=== PATIENT | male | born 1940 | race Caucasian/White ===

== ENCOUNTER 2016-12-06 07:13 | Day surgery (SDC) | payer MEDICARE, OTHER ==
[~2016-12-06 07:13] MED LIST: Cefuroxime 10 MG/ML SYRINGE EYERT SCH; Lidocaine 1% PF 2 ML SDV INJECT SCH; Pilocarpine 4% Ophth Soln 15 ML Bot EYERT SCH
[2016-12-06] MEDS: Polymyxin B/Trimethoprim 10 ML Bottle EYERT SCH ×3 (07:30→09:25)
[2016-12-06] MEDS: Brimonidine 0.2% Ophth Soln 5 ML Bottle EYERT SCH ×3 (07:35→09:25)
[2016-12-06] MEDS: Phenylephrine 2.5% Ophth Soln 2 ML Bot EYERT SCH ×5 (07:39→09:02)
--- NOTE | 2016-12-06 07:54 | PCM.PREANE ---
Preanesthetic Assessment - Anesthesia/Transfusion/Family Hx Anesthesia History: Prior Anesthesia Without Reaction Family History of Anesthesia Reaction: No Transfusion History: No Prior Transfusion(s) Intubation History: Unknown - Review of Systems General: No Symptoms Pulmonary: No Symptoms (quit smoking 30 yrs ago.) Cardiovascular: No Symptoms (HTN) Gastrointestinal: No Symptoms (GERD) Neurological: No Symptoms Other: Reports: Diabetes (0630 blood sugar 105), Depression - Physical Assessment NPO Status Date: 12/05/16 NPO Status Time: 22:00 Pulse: 65 O2 Sat by Pulse Oximetry: 93 Respiratory Rate: 16 Blood Pressure: 129/66 Temperature: 36.7 C Height: 1.75 m Weight: 97.522 kg ASA Class: 2 Mental Status: Alert & Oriented x3 Airway Class: Mallampati = 2 Dentition: Reports: Normal Dentition, Missing Tooth/Teeth, Caries Thyro-Mental Finger Breadths: 3 Mouth Opening Finger Breadths: 3 Lungs: Clear to Auscultation, Normal Respiratory Effort Cardiovascular: Regular Rate, Regular Rhythm, No Murmurs - Allergies Allergies/Adverse Reactions: Allergies Allergy/AdvReac Type Severity Reaction Status Date / Time No Known Allergies Allergy Verified 12/01/16 11:14 - Anesthesia Plan Pre-Op Medication Ordered: None - Acknowledgements Anesthesia Type Planned: MAC Pt an Appropriate Candidate for the Planned Anesthesia: Yes Alternatives and Risks of Anesthesia Discussed w Pt/Guardian: Yes Pt/Guardian Understands and Agrees with Anesthesia Plan: Yes PreAnesthesia Questionnaire - HOME MEDS Home Medications: Home Meds Aspirin 81 mg PO DAILY 12/01/16 [History] Fenofibrate 160 mg PO DAILY 12/01/16 [History] Glimepiride [Amaryl] 4 mg PO DAILY 12/01/16 [History] Insulin Glargine,Hum.Rec.Anlog [Touangelao Solostar] 300 units SUBCUT ASDIRECTED [History] Insulin Lispro [Humalog Kwikpen U-100] 100 units SUBCUT ASDIRECTED 12/01/16 [ History] Omeprazole Magnesium [Prilosec] 2.5 mg PO DAILY 12/01/16 [History] PARoxetine [Paxil] 20 mg PO DAILY 12/01/16 [History] Valsartan/Hydrochlorothiazide [Valsartan-Hctz 160-12.5 mg Tab] 1 tab PO DAILY [History] atorvaSTATin Calcium [Atorvastatin Calcium] 80 mg PO DAILY 12/01/16 [History] - CURRENT (IN HOUSE) MEDS Current Meds: Current Medications Brimonidine Tartrate (Alphagan 0.2% Ophth Soln) 0 ml EYERT ASDIRECTED KAIT Stop: 12/06/16 16:00 Last Admin: 12/06/16 07:35 Dose: 1 drop Cefuroxime Sodium (Zinacef) 0 mg EYERT ASDIRECTED KAIT Stop: 12/06/16 16:00 Lidocaine HCl (Xylocaine-Mpf 1%) 10 ml INJECT ASDIRECTED KAIT Stop: 12/06/16 16:00 Phenylephrine HCl (Jeffy-Synephrine 2.5% Ophth Soln) 0 ml EYERT ASDIRECTED KAIT Stop: 12/06/16 16:00 Last Admin: 12/06/16 07:39 Dose: 1 drop Pilocarpine HCl (Pilocar 4% Ophth Soln) 0 ml EYERT ASDIRECTED KAIT Stop: 12/06/16 16:00 Polymyxin/Trimethoprim Sulfate (Polytrim Ophth Soln) 0 ml EYERT ASDIRECTED KAIT Stop: 12/06/16 16:00 Last Admin: 12/06/16 07:30 Dose: 1 drop Tetracaine HCl (Tetracaine 0.5% Steri-Unit Daisy) 0 ml EYERT ASDIRECTED KAIT Stop: 12/06/16 16:00 Tropicamide (Mydriacyl 1% Ophth Soln) 0 ml EYERT ASDIRECTED KAIT Stop: 12/06/16 16:00 Last Admin: 12/06/16 07:44 Dose: 1 drop
[2016-12-06] MEDS: Tetracaine HCl/PF 0.5% 4 ML Bottle EYERT SCH ×2 (08:51→09:15)
--- NOTE | 2016-12-06 09:29 | PCM48HPAN ---
Post Anesthesia Note - EVALUATION WITHIN 48HRS OF ANESTHETIC Vital Signs in Normal Range: Yes Patient Participated in Evaluation: Yes Respiratory Function Stable: Yes Airway Patent: Yes Cardiovascular Function Stable: Yes Hydration Status Stable: Yes Pain Control Satisfactory: Yes Nausea and Vomiting Control Satisfactory: Yes Mental Status Recovered: Yes
[2016-12-06 09:38] VITALS: BP 145/67
== END 2016-12-06 09:37 | disposition home or self-care (01) ==
LOC: JD.SDS 07:13
PROVIDERS: ATTEND Ophthalmology
DX: H26.9 Unspecified cataract (principal); I10 Essential (primary) hypertension; E78.00 Pure hypercholesterolemia, unspecified; E11.9 Type 2 diabetes mellitus without complications; K21.9 Gastro-esophageal reflux disease without esophagitis; Z79.82 Long term (current) use of aspirin; Z79.4 Long term (current) use of insulin; Z79.899 Other long term (current) drug therapy; Z87.891 Personal history of nicotine dependence
CPT/HCPCS: 66984; A9270; C1780; J0697

== ENCOUNTER 2018-12-06 11:48 | Emergency (ER) | payer MEDICARE, OTHER ==
[2018-12-06] MEDS ORDERED: Sodium Chloride 0.9% 10 ML Syringe FLUSH PRN (12:18)
--- NOTE | 2018-12-06 13:32 | CT ---
Head CT Technique: Multiple axial sections through the brain were obtained. Intravenous contrast was not utilized. Comparison: No previous intracranial imaging is available. Findings: Ventricles along with basal cisterns and sulci over the convexities are moderately prominent. Very minimal diminished density noted within portions of the periventricular white matter compatible with small vessel ischemic demyelination change. Several lacunar infarcts are felt to be present within the basal ganglia. No other abnormal parenchymal densities are seen. No evidence of intracranial hemorrhage. No midline shift or mass effect is seen. Bone window settings were reviewed which show a rounded soft tissue finding within the inferior right maxillary sinus measuring 1.5 cm compatible with retention cyst. Slight mucosal thickening seen within the left maxillary sinus. Mastoid sinuses are clear. No acute calvarial abnormality is appreciated. Air is noted within a small left globe presumably due to rupture of the eyeball. No orbital wall fracture is appreciated on this exam. Impression: 1. Senescent change as noted above. Minimal sinus findings which are believed to be chronic. 2. Small left globe containing air most likely representing rupturing of the eyeball. 3. No other acute abnormality is appreciated. Diagnostic code #5
--- NOTE | 2018-12-06 13:32 | CT ---
CT facial bones Technique: Multiple axial sections through the facial bones were obtained. Intravenous contrast was not utilized. Reconstructed coronal and sagittal images were reviewed. Findings: Retention cyst is noted within the inferior right maxillary sinus. Minimal areas of mucosal thickening are seen within both maxillary sinuses. No air-fluid levels are seen within the paranasal sinuses. No facial bone fracture is identified. Small left globe is seen with air also seen within the globe. This finding is felt compatible with rupturing of the eyeball. Right globe appears unremarkable. Impression: 1. Small left globe with air compatible with ruptured eyeball. 2. Sinus findings which are believed to be chronic and incidental. 3. No acute facial bone fracture is seen. Diagnostic code #5
[2018-12-06] MEDS ORDERED: HYDROmorphone 0.5 MG/0.5 ML Syringe IVPUSH ONE (13:49)
--- NOTE | 2018-12-06 13:53 | EDM.PDOC ---
ED HPI GENERAL MEDICAL PROBLEM - General Chief Complaint: Head Injury Stated Complaint: EYE INJURY Time Seen by Provider: 12/06/18 12:17 Source of Information: Reports: Patient, Family History Limitations: Reports: No Limitations - History of Present Illness INITIAL COMMENTS - FREE TEXT/NARRATIVE: The patient presents with a left eye injury. The patient was in his yard and tripped and fell and his his head. He may have had LOC. He has an injury to his left eye with bleeding. He cannot see anything out of that eye. He can maybe see some light. He is on aspirin. He has no headache or neck pain. He has no chest pain or shortness of breath. He has no abdominal pain, nausea or vomiting. He has no pain in his hips or arms. Onset: Sudden Duration: Minutes: Location: Reports: Other (Left eye) Quality: Reports: Sharp Severity: Moderate Improves with: Reports: None Worsens with: Reports: None Associated Symptoms: Reports: No Other Symptoms Headache Pain Score (Numeric/FACES): 5 - Related Data Allergies Allergy/AdvReac Type Severity Reaction Status Date / Time No Known Allergies Allergy Verified 12/06/18 12:24 Home Meds: Home Meds Aspirin 81 mg PO DAILY 12/01/16 [History] Fenofibrate 160 mg PO DAILY 12/01/16 [History] Glimepiride [Amaryl] 4 mg PO DAILY 12/01/16 [History] Insulin Glargine,Hum.Rec.Anlog [Cheikh Jackson] 300 units SUBCUT ASDIRECTED [History] Insulin Lispro [Humalog Kwikpen U-100] 100 units SUBCUT ASDIRECTED 12/01/16 [ History] Omeprazole Magnesium [Prilosec] 2.5 mg PO DAILY 12/01/16 [History] PARoxetine [Paxil] 20 mg PO DAILY 12/01/16 [History] Valsartan/Hydrochlorothiazide [Valsartan-Hctz 160-12.5 mg Tab] 1 tab PO DAILY [History] atorvaSTATin Calcium [Atorvastatin Calcium] 80 mg PO DAILY 12/01/16 [History] Past Medical History Cardiovascular History: Reports: Hypertension Respiratory History: Reports: Sleep Apnea Gastrointestinal History: Reports: GERD Endocrine/Metabolic History: Reports: Diabetes, Type II Social & Family History - Tobacco Use Smoking Status *Q: Former Smoker Used Tobacco, but Quit: Yes Month/Year Tobacco Last Used: 30 yrs ago ED ROS GENERAL - Review of Systems Review Of Systems: See Below Constitutional: Reports: No Symptoms HEENT: Reports: Other (Left eye vision loss and laceration to his left eye) Respiratory: Reports: No Symptoms Cardiovascular: Reports: No Symptoms Endocrine: Reports: No Symptoms GI/Abdominal: Reports: No Symptoms : Reports: No Symptoms Musculoskeletal: Reports: No Symptoms Skin: Reports: No Symptoms Neurological: Reports: No Symptoms ED EXAM, HEAD INJURY - Physical Exam Exam: See Below Exam Limited By: No Limitations General Appearance: Alert, No Apparent Distress Head: Other (Lacration to the left eye) Eyes: Left Eye: Other (Laceration to the eye with bleeding. The laceration is just medial to the cornea and through the sclera.) Ears: Normal External Exam Nose: Normal Inspection Throat/Mouth: Normal Inspection Neck: Non-Tender, Normal Alignment, Normal Inspection Respiratory: No Respiratory Distress, Lungs Clear, Normal Breath Sounds Cardiovascular: Regular Rate, Rhythm, No Edema, No Murmur GI/Abdominal Exam: Soft, Non-Tender, No Organomegaly, No Mass Back Exam: Normal Inspection Extremities: Normal Inspection Course - Vital Signs Last Recorded V/S: Last Vital Signs Temp 97.8 F 12/06/18 12:22 Pulse 75 12/06/18 12:22 Resp 16 12/06/18 12:22 BP 139/75 12/06/18 12:22 Pulse Ox 90 L 12/06/18 12:22 - Orders/Labs/Meds Orders: Active Orders 24 hr Category Date Time Status Cardiac Monitoring [RC] . DIRECTED Care 12/06/18 12:18 Active Peripheral IV Care [RC] . DIRECTED Care 12/06/18 12:18 Active Sodium Chloride 0.9% [Saline Flush] Med 12/06/18 12:18 Active 10 ml FLUSH ASDIRECTED PRN Peripheral IV Insertion Adult [OM.PC] Stat Oth 12/06/18 12:18 Ordered Medication Orders Sodium Chloride (Saline Flush) 10 ml FLUSH ASDIRECTED PRN PRN Reason: Keep Vein Open Labs: Laboratory Tests 12/06/18 12/06/18 12/06/18 Range/Units 12:20 12:20 12:20 WBC 6.56 (4.23-9.07) K/mm3 RBC 4.46 L (4.63-6.08) M/mm3 Hgb 13.1 L D (13.7-17.5) gm/L Hct 41.1 (40.1-51.0) % MCV 92.2 (79.0-92.2) fl MCH 29.4 (25.7-32.2) pg MCHC 31.9 L (32.2-35.5) g/dl RDW Std Deviation 46.8 H (35.1-43.9) fL Plt Count 193 (163-337) K/mm3 MPV 10.2 (9.4-12.3) fl Neut % (Auto) 71.8 H (34.0-67.9) % Lymph % (Auto) 13.0 L (21.8-53.1) % [place] % (Auto) 11.3 (5.3-12.2) % Eos % (Auto) 3.0 (0.8-7.0) Baso % (Auto) 0.3 (0.1-1.2) % Neut # (Auto) 4.71 (1.78-5.38) K/mm3 Lymph # (Auto) 0.85 L (1.32-3.57) K/mm3 [place] # (Auto) 0.74 (0.30-0.82) K/mm3 Eos # (Auto) 0.20 (0.04-0.54) K/mm3 Baso # (Auto) 0.02 (0.01-0.08) K/mm3 PT 11.4 (9.7-12.0) SECONDS INR 1.05 APTT 23 (22-31) SECONDS Sodium 143 (136-145) mEq/L Potassium 3.8 (3.5-5.1) mEq/L Chloride 106 (98-107) mEq/L Carbon Dioxide 28 (21-32) mEq/L Anion Gap 12.8 (5-15) BUN 30 H (7-18) mg/dL Creatinine 1.3 (0.7-1.3) mg/dL Est Cr Clr Drug Dosing 42.37 mL/min Estimated GFR (MDRD) 53 (>60) mL/min BUN/Creatinine Ratio 23.1 H (14-18) Glucose 97 (83-115) mg/dL Calcium 9.2 (8.5-10.1) mg/dL Total Bilirubin 0.6 (0.2-1.0) mg/dL AST 41 H (15-37) U/L ALT 32 (16-63) U/L Alkaline Phosphatase 37 L (46-116) U/L Total Protein 7.7 (6.4-8.2) g/dl Albumin 3.8 (3.4-5.0) g/dl Globulin 3.9 gm/dL Albumin/Globulin Ratio 1.0 (1-2) Meds: Medications Generic Name Dose Route Start Last Admin Trade Name Freq PRN Reason Stop Dose Admin Sodium Chloride 10 ml 12/06/18 12:18 Saline Flush FLUSH ASDIRECTED PRN Keep Vein Open Discontinued Medications Generic Name Dose Route Start Last Admin Trade Name Freq PRN Reason Stop Dose Admin Hydromorphone HCl 0.5 mg 12/06/18 13:49 Dilaudid IVPUSH 12/06/18 13:50 ONETIME ONE - Re-Assessments/Exams Free Text/Narrative Re-Assessment/Exam: 12/06/18 14:14 I ordered an IV saline lock, labs, CT of his head and facial bones. His labs look good. The CT of he head shows senescent change. Minimal sinus findings which are believed to be chronic. Small left globe containing air most likely representing rupturing of the eyeball. No other acute abnormality is appreciated. The CT of his facial bones shows small left globe with air compatible with ruptured eyeball. Sinus findings which are believed to be chronic and incidental. No acute facial bone fracture is seen. I called [facility] [address] and Dr Vidal was on for opthamology. He said he just left [place]. He was doing surgery here. He wanted the patient to go to their office at [facility] [address] . Departure - Departure Time of Disposition: 14:20 Disposition: Home, Self-Care 01 Condition: Good Clinical Impression: Eye laceration Qualifiers: Encounter type: initial encounter Laterality: left Qualified Code(s): S05.32XA - Ocular laceration without prolapse or loss of intraocular tissue, left eye, initial encounter Ruptured globe of left eye Qualifiers: Encounter type: initial encounter Qualified Code(s): S05.32XA - Ocular laceration without prolapse or loss of intraocular tissue, left eye, initial encounter - Discharge Information *PRESCRIPTION DRUG MONITORING PROGRAM REVIEWED*: No *COPY OF PRESCRIPTION DRUG MONITORING REPORT IN PATIENT KAVON: No Referrals: Solange Rubio ELECTROLYSIS NEEDLE OPERATOR [Primary Care Provider] - Forms: ED Department Discharge Additional Instructions: Go directly to Dr Vidal's office at the [facility]. The address is [address] [place] [address] in [place]. Do not ear or drink on the way. - My Orders Last 24 Hours: My Active Orders 12/06/18 12:18 Cardiac Monitoring [RC] . DIRECTED Peripheral IV Care [RC] . DIRECTED Sodium Chloride 0.9% [Saline Flush] 10 ml FLUSH ASDIRECTED PRN Peripheral IV Insertion Adult [OM.PC] Stat - Assessment/Plan Last 24 Hours: My Active Orders 12/06/18 12:18 Cardiac Monitoring [RC] . DIRECTED Peripheral IV Care [RC] . DIRECTED Sodium Chloride 0.9% [Saline Flush] 10 ml FLUSH ASDIRECTED PRN Peripheral IV Insertion Adult [OM.PC] Stat
[2018-12-06 14:42] VITALS: BP 177/78
== END 2018-12-06 14:35 | disposition home or self-care (01) ==
LOC: JD.ED 11:48
DX: S05.32XA Ocular laceration without prolapse or loss of intraocular tissue, left eye, initial encounter (principal); I10 Essential (primary) hypertension; K21.9 Gastro-esophageal reflux disease without esophagitis; E11.9 Type 2 diabetes mellitus without complications; Z87.891 Personal history of nicotine dependence; Z79.4 Long term (current) use of insulin; Z79.82 Long term (current) use of aspirin; Z79.899 Other long term (current) drug therapy; W01.0XXA Fall on same level from slipping, tripping and stumbling without subsequent striking against object, initial encounter
CPT/HCPCS: 36415; 70450; 70486; 80053; 85025; 85610; 85730; 96374; 99284; J1170

== ENCOUNTER 2021-04-22 08:43 | Day surgery (SDC) | payer MEDICARE, OTHER ==
--- NOTE | 2021-04-22 07:13 | PCM.PREANE ---
Preanesthetic Assessment - Procedure Proposed Procedure: Colonoscopy - Anesthesia/Transfusion/Family Hx Anesthesia History: Prior Anesthesia Without Reaction Type of Anesthesia Reaction: Other (see below) ("oxygen dropped following his eye surgery") Transfusion History: No Prior Transfusion(s) Intubation History: Unknown - Review of Systems General: No Symptoms Pulmonary: No Symptoms Cardiovascular: No Symptoms Gastrointestinal: Diarrhea (prep induced ) Neurological: No Symptoms Other: Reports: Diabetes - Physical Assessment NPO Status Date: 04/22/21 NPO Status Time: 05:30 (prep) Vital Signs: 157/71 RR 16 98.4 93% RA HR 74 Height: 1.73 m Weight: 94 kg ASA Class: 3 Mental Status: Alert & Oriented x3 Airway Class: Mallampati = 3 Dentition: Reports: Broken Tooth/Teeth, Missing Tooth/Teeth, Caries Thyro-Mental Finger Breadths: 2 Mouth Opening Finger Breadths: 2 ROM/Head Extension: Full Lungs: Normal Respiratory Effort, Decreased Breath Sounds Cardiovascular: Regular Rhythm, Other (very mild murmur) - Lab Values: Labs reviewed from 04/14/21 and within acceptable limits - Imaging/EKG Impressions: Stress test 01/19/21: nothing acute noted - Allergies Allergies/Adverse Reactions: Allergies Allergy/AdvReac Type Severity Reaction Status Date / Time No Known Allergies Allergy Verified 04/21/21 09:07 - Acknowledgements Anesthesia Type Planned: MAC Pt an Appropriate Candidate for the Planned Anesthesia: Yes Alternatives and Risks of Anesthesia Discussed w Pt/Guardian: Yes Pt/Guardian Understands and Agrees with Anesthesia Plan: Yes PreAnesthesia Questionnaire HEENT History: Reports: Cataract, Hard of Hearing, Other (See Below) Other HEENT History: Blind in left eye Cardiovascular History: Reports: Hypertension Other Cardiovascular History: edema and heart murmur Respiratory History: Reports: Sleep Apnea Other Respiratory History: hypoxia Gastrointestinal History: Reports: GERD, Other (See Below) Other Gastrointestinal History: tubular adenoma of colon? stated that she had this but he had pre-cancerous polyps Other Genitourinary History: chronic kidney disease, hematuria, prostatitis, kidney stone, uTI, bladder and prostate surgery Musculoskeletal History: Reports: None Other Neuro History: memory concerns Psychiatric History: Reports: Anxiety, Depression Endocrine/Metabolic History: Reports: Diabetes, Type II Other Endocrine/Metabolic History: hypoglycemia Hematologic History: Reports: Anemia Other Hematologic History: decreased hemaglobin Immunologic History: Reports: None Oncologic (Cancer) History: Reports: Bladder Other Dermatologic History: skin lesions - Past Surgical History HEENT Surgical History: Reports: Other (See Below) (eye surgeries x 2) Cardiovascular Surgical History: Reports: None Male Surgical History: Reports: Other (See Below) (Bladder and prostate surgery) - SUBSTANCE USE Tobacco Use Status *Q: Former Tobacco User (quit 43 years ago) Second Hand Smoke Exposure: No Days Per Week of Alcohol Use: 7 Number of Drinks Per Day: 2 Total Drinks Per Week: 14 Recreational Drug Use History: No - HOME MEDS Home Medications: Home Meds PARoxetine [Paxil] 20 mg PO DAILY 12/01/16 [History] Cholecalciferol (Vitamin D3) [Vitamin D] 1,000 units PO DAILY 04/21/21 [History] Insulin Glargine,Hum.Rec.Anlog [Toujeo Max Solostar] 48 units SQ DAILY 04/21/21 [History] Insulin Lispro [Humalog Kwikpen U-100] 30 units SQ DAILY 04/21/21 [History] Losartan Potassium 100 mg pe PO DAILY 04/21/21 [History] Omeprazole 20 mg PO ASDIRECTED PRN 04/21/21 [History] Prevagen 20 mg PO DAILY 04/21/21 [History] Rosuvastatin Calcium [Crestor] 40 mg PO DAILY 04/21/21 [History] hydroCHLOROthiazide [Hydrochlorothiazide] 25 mg PO DAILY 04/21/21 [History] - CURRENT (IN HOUSE) MEDS Current Meds: Current Medications Lactated Ringer's (Ringers, Lactated) 1,000 mls @ 125 mls/hr IV ASDIRECTED KAIT Stop: 04/22/21 23:00 Lidocaine/Sodium Bicarbonate (Lidocaine 1%/Sod Bicarbonate In Ns 8.4% 1 Ml Syringe) 0.25 ml IDERM ONETIME PRN PRN Reason: Prior to IV Start Stop: 04/22/21 18:00 Sodium Chloride (Sodium Chloride 0.9% 10 Ml Syringe) 10 ml FLUSH 0900,2100 [facility] Stop: 04/22/21 18:00
[~2021-04-22 08:43] MED LIST changes: +Albuterol 0.083% 2.5 MG/3 ML Neb Soln NEB ONE; -Cefuroxime 10 MG/ML SYRINGE EYERT SCH; +Lactated Ringers 1,000 ML IV SCH; -Lidocaine 1% PF 2 ML SDV INJECT SCH; +Lidocaine 1%/Sod Bicarbonate in NS 8.4% 1 ML Syringe IDERM PRN; -Pilocarpine 4% Ophth Soln 15 ML Bot EYERT SCH; +Sodium Chloride 0.9% 10 ML Syringe FLUSH SCH
[2021-04-22] MEDS ORDERED: Sodium Chloride 0.9% 1,000 ML IV SCH (08:45)
[2021-04-22] MEDS ORDERED: Propofol 200 MG/20 ML SDV ONE ×2 (09:01→09:40)
[2021-04-22] MEDS ORDERED: Midazolam 1 MG/ML 2 ML SDV ONE (09:01)
--- NOTE | 2021-04-22 09:59 | PCM.PRNOTE ---
- Free Text/Narrative Note: Date: 04/22/2021 Procedure: screening colonoscopy History: adenomatous polyps on prior screening ~5 years ago Endoscopist: Amaury Goins Findings: good prep, cecum reached. Advanced pandiverticulosis. Multiple small benign appearing polyps along the length of the colon, 7 in total were removed with 6 successfully retrieved. Detailed Report: The patient was taken to the endoscopy suite and placed in left lateral decubitus position. Timeout was performed and monitored anesthesia care was initiated. The anus appeared normal and digital rectal exam was unremarkable. The colonoscope was inserted and advanced all the way to the cecum. There was advanced diverticular disease throughout the length of the colon. The appendiceal orifice and ileocecal valve were well visualized. Prep was good. The scope was slowly withdrawn and mucosal surfaces carefully inspected. On the ridge of the ileocecal valve was a small sessile polyp which was removed using cold forceps. Just distal to this on the opposite wall was a small pedunculated polyp which was removed using a hot snare. At the proximal transverse colon were 2 additional small polyps which were removed using hot snare. One of the specimens was not successfully retrieved and could not be identified afterward. A minuscule pedunculated polyp was identified in the mid transverse colon and removed using cold forceps. A larger pedunculated polyp with a long stalk was identified in the sigmoid colon and this was removed using hot snare polypectomy technique. At the proximal rectum was a small pedunculated polyp which was removed in piecemeal fashion using cold forceps. A small hypertrophied anal papilla was noted on retroflexion within the rectum but otherwise no pathology was appreciated. Air was suctioned from the distal colon and rectum prior to withdrawal of the scope. The patient tolerated the procedure well.
--- NOTE | 2021-04-22 10:01 | PCM48HPAN ---
Post Anesthesia Note - EVALUATION WITHIN 48HRS OF ANESTHETIC Vital Signs in Normal Range: Yes Patient Participated in Evaluation: Yes Respiratory Function Stable: Yes Airway Patent: Yes Cardiovascular Function Stable: Yes Hydration Status Stable: Yes Pain Control Satisfactory: Yes Nausea and Vomiting Control Satisfactory: Yes Mental Status Recovered: Yes Vital Signs: Last Vital Signs Temp 98.4 F 04/22/21 08:47 Pulse 74 04/22/21 08:47 Resp 16 04/22/21 08:47 BP 157/71 H 04/22/21 08:47 Pulse Ox 93 L 04/22/21 08:47 Vital signs at 0954: BP 114/68 HR 81 RR 14 95% RA 97.9
[2021-04-22 12:12] VITALS: BP 141/78; PULSE 72
== END 2021-04-22 11:04 | disposition home or self-care (01) ==
LOC: JD.SDS 08:43
PROVIDERS: ATTEND Surgery
DX: Z12.11 Encounter for screening for malignant neoplasm of colon (principal); D12.0 Benign neoplasm of cecum; D12.3 Benign neoplasm of transverse colon; D12.5 Benign neoplasm of sigmoid colon; D12.8 Benign neoplasm of rectum; K57.30 Diverticulosis of large intestine without perforation or abscess without bleeding; F32.A Depression, unspecified; G47.33 Obstructive sleep apnea (adult) (pediatric); I12.9 Hypertensive chronic kidney disease with stage 1 through stage 4 chronic kidney disease, or unspecified chronic kidney disease; E11.22 Type 2 diabetes mellitus with diabetic chronic kidney disease; N18.9 Chronic kidney disease, unspecified; K21.9 Gastro-esophageal reflux disease without esophagitis; Z79.899 Other long term (current) drug therapy; Z79.4 Long term (current) use of insulin; Z98.890 Other specified postprocedural states; Z87.891 Personal history of nicotine dependence
CPT/HCPCS: 45380; 45385; J2250; J2704; J7030; 00812; 99100

== ENCOUNTER 2021-08-29 13:06 | Emergency (ER) | payer MEDICARE, OTHER ==
[2021-08-29 13:29] VITALS: BP 136/64; PULSE 75
[2021-08-29] MEDS ORDERED: Lactated Ringers 1,000 ML IV SCH (14:30)
[2021-08-29] MEDS ORDERED: Potassium Chloride 20 MEQ Tab.ER PO ONE (16:30)
== END 2021-08-29 17:08 | disposition home or self-care (01) ==
LOC: JD.ED 13:06
DX: N13.2 Hydronephrosis with renal and ureteral calculous obstruction (principal); E11.22 Type 2 diabetes mellitus with diabetic chronic kidney disease; I12.9 Hypertensive chronic kidney disease with stage 1 through stage 4 chronic kidney disease, or unspecified chronic kidney disease; N18.9 Chronic kidney disease, unspecified; Z79.4 Long term (current) use of insulin; Z87.891 Personal history of nicotine dependence
CPT/HCPCS: 36415; 74176; 80053; 81001; 83690; 85025; 96360; 96361; 99284; A9270; J7120

== ENCOUNTER 2023-02-21 11:30 | Emergency (ER) | payer MEDICARE, OTHER ==
[2023-02-21] MEDS ORDERED: Aspirin 81 MG Tab.Chew PO ONE (11:52)
[2023-02-21] MEDS ORDERED: Sodium Chloride 0.9% 10 ML Syringe FLUSH PRN (11:52)
[2023-02-21 12:17] LABS: BASOPHILS PERCENT AUTO 0.5 % (0.0-1.0); EOSINOPHILS ABSOLUTE AUTO 0.1 K/mm3 (0.0-0.4); EOSINOPHILS PERCENT AUTO 1.5 % (0.0-6.0); HEMOGLOBIN 14.7 gm/dl (14.0-18.0); IMMATURE GRAN ABSOLUTE AUTO 0.06 K/mm3 (0.00-0.05); IMMATURE GRAN PERCENT AUTO 0.8 % (0.0-0.4); LYMPHOCYTES ABSOLUTE AUTO 1.1 K/mm3 (1.0-4.8); LYMPHOCYTES PERCENT AUTO 13.9 % (24.0-44.0); MEAN CORPUSCULAR HEMOGLOBIN 28.9 pg (28.0-32.0); MEAN CORPUSCULAR HGB CONC 32.7 g/dl (32.0-36.0); MEAN CORPUSCULAR VOLUME 88.6 fl (83.0-99.0); MEAN PLATELET VOLUME 10.7 fl (9.4-12.4); MONOCYTES ABSOLUTE AUTO 0.9 K/mm3 (0.0-0.8); MONOCYTES PERCENT AUTO 10.9 % (0.0-8.0); NEUTROPHILS ABSOLUTE AUTO 5.7 K/mm3 (1.8-7.7); NEUTROPHILS PERCENT AUTO 72.4 % (41.0-71.0); PLATELET COUNT,PLT 184 K/mm3 (150-400); RED BLOOD CELL COUNT 5.08 M/mm3 (4.52-5.90); WHITE BLOOD CELL COUNT,WBC 7.86 K/mm3 (3.9-11.3)
[2023-02-21 12:36] LABS: INR 1.07; PROTHROMBIN TIME 11.4 SECONDS (9.7-12.0)
[2023-02-21 12:49] LABS: A/G RATIO 0.9 (1-2); ALBUMIN 3.5 g/dl (3.4-5.0); ANION GAP 11.7 (5-15); BILIRUBIN TOTAL 0.5 mg/dL (0.2-1.0); BUN/CREATININE RATIO 11.4 (14-18); CREATININE 1.4 mg/dL (0.7-1.3); EST CRCL DRUG DOSING (CG) 38.58 mL/min; MAGNESIUM 1.8 mg/dL (1.8-2.4); POTASSIUM,K 3.7 mEq/L (3.5-5.1); PROTEIN TOTAL,TP 7.3 g/dl (6.4-8.2)
[2023-02-21 12:50] LABS: D-DIMER QUANTITATIVE 0.54 mg/L (0.19-0.50)
[2023-02-21 15:23] VITALS: BP 160/82; PULSE 79
== END 2023-02-21 15:23 | disposition home or self-care (01) ==
LOC: JD.ED 11:30
DX: R07.9 Chest pain, unspecified (principal); E11.22 Type 2 diabetes mellitus with diabetic chronic kidney disease; I12.9 Hypertensive chronic kidney disease with stage 1 through stage 4 chronic kidney disease, or unspecified chronic kidney disease; N18.9 Chronic kidney disease, unspecified; K21.9 Gastro-esophageal reflux disease without esophagitis; Z79.4 Long term (current) use of insulin; Z79.899 Other long term (current) drug therapy
CPT/HCPCS: 36415; 71045; 80053; 83735; 83880; 84484; 85025; 85379; 85610; 93005; 93246; 99285; A9270; J3490; 93010; 99284

== ENCOUNTER 2023-04-19 17:05 | Emergency (ER) | payer MEDICARE, OTHER ==
[2023-04-19 17:20] VITALS: PULSE 85
[2023-04-19] MEDS ORDERED: Sodium Chloride 0.9% 10 ML Syringe FLUSH PRN (17:38)
[2023-04-19] MEDS ORDERED: Sodium Chloride 0.9% 1,000 ML IV SCH (17:45)
[2023-04-19 18:01] LABS: BASOPHILS PERCENT AUTO 0.4 % (0.0-1.0); EOSINOPHILS ABSOLUTE AUTO 0.1 K/mm3 (0.0-0.4); EOSINOPHILS PERCENT AUTO 1.2 % (0.0-6.0); HEMATOCRIT 47.8 % (42.0-52.0); HEMOGLOBIN 14.9 gm/dl (14.0-18.0); IMMATURE GRAN ABSOLUTE AUTO 0.06 K/mm3 (0.00-0.05); IMMATURE GRAN PERCENT AUTO 0.9 % (0.0-0.4); LYMPHOCYTES ABSOLUTE AUTO 0.7 K/mm3 (1.0-4.8); LYMPHOCYTES PERCENT AUTO 10.6 % (24.0-44.0); MEAN CORPUSCULAR HEMOGLOBIN 28.1 pg (28.0-32.0); MEAN CORPUSCULAR HGB CONC 31.2 g/dl (32.0-36.0); MEAN CORPUSCULAR VOLUME 90.2 fl (83.0-99.0); MEAN PLATELET VOLUME 11.2 fl (9.4-12.4); MONOCYTES ABSOLUTE AUTO 1.2 K/mm3 (0.0-0.8); MONOCYTES PERCENT AUTO 17.4 % (0.0-8.0); NEUTROPHILS ABSOLUTE AUTO 4.7 K/mm3 (1.8-7.7); NEUTROPHILS PERCENT AUTO 69.5 % (41.0-71.0); PLATELET COUNT,PLT 167 K/mm3 (150-400); WHITE BLOOD CELL COUNT,WBC 6.79 K/mm3 (3.9-11.3)
[2023-04-19 18:09] LABS: A/G RATIO 0.9 (1-2); ALBUMIN 3.6 g/dl (3.4-5.0); ANION GAP 12.5 (5-15); BILIRUBIN TOTAL 0.6 mg/dL (0.2-1.0); BUN/CREATININE RATIO 13.6 (14-18); C-REACTIVE PROTEIN 2.8 mg/dL (<1.0); CALCIUM 9.2 mg/dL (8.5-10.1); CREATININE 1.4 mg/dL (0.7-1.3); EST CRCL DRUG DOSING (CG) 39.83 mL/min; MAGNESIUM 2.1 mg/dL (1.8-2.4); POTASSIUM,K 3.5 mEq/L (3.5-5.1); PROTEIN TOTAL,TP 7.7 g/dl (6.4-8.2)
[2023-04-19 18:40] LABS: CORONAVIRUS COVID-19 NAA POSITIVE (NEGATIVE); INFLUENZA A NAA NEGATIVE (NEGATIVE); RESPIRATORY SYNCYTIAL VIR NAA NEGATIVE (NEGATIVE)
[2023-04-19] MEDS ORDERED: Nirmatrelvir/Ritonavir 150 MG/100 MG Dose Pack PO ONE (19:14)
[2023-04-19 21:49] VITALS: BP 168/84
== END 2023-04-19 20:00 | disposition home or self-care (01) ==
LOC: JD.ED 17:05
DX: U07.1 COVID-19 (principal); K21.9 Gastro-esophageal reflux disease without esophagitis; E11.9 Type 2 diabetes mellitus without complications; Z79.899 Other long term (current) drug therapy; Z79.4 Long term (current) use of insulin
CPT/HCPCS: 0241U; 36415; 71045; 71045-26; 80053; 83605; 83735; 84484; 85025; 86140; 93005; 93010; 99284; 99285; J3490; J7030